=== PATIENT | female | born 1950 | race Two or more races ===

== ENCOUNTER 2017-05-23 10:12 | Outpatient (CLI) | payer MEDICARE, BC ==
[~2017-05-23] VITALS: Ht 162.6 cm; Wt 70.5 kg
[2017-05-23 12:03] VITALS: Ht 162.6 cm; Wt 70.5 kg
== END 2017-05-23 11:15 | disposition home or self-care (01) ==
LOC: D.OPS 10:12
DX: M81.0 Age-related osteoporosis without current pathological fracture (principal)